=== PATIENT | female | born 1930 | race Caucasian/White ===

== ENCOUNTER → 2017-07-06 | Outpatient (CLI) | payer MEDICARE, OTHER | LOC: COL.RAD 08:35 | DX: M25.531 Pain in right wrist (principal); M25.831 Other specified joint disorders, right wrist | CPT/HCPCS: J3301; Q9967 ==

== ENCOUNTER → 2017-10-28 | Outpatient (CLI) | payer MEDICARE, OTHER | LOC: COL.RAD 11:00 | DX: M25.531 Pain in right wrist (principal) | CPT/HCPCS: J3301; Q9967 ==

== ENCOUNTER → 2018-03-09 | Outpatient (CLI) | payer MEDICARE, OTHER | LOC: COL.RAD 13:00 | DX: M19.031 Primary osteoarthritis, right wrist (principal) | CPT/HCPCS: J3301; Q9967 ==

== ENCOUNTER → 2018-07-20 | Outpatient (CLI) | payer MEDICARE, OTHER | LOC: COL.RAD 09:15 | DX: M25.531 Pain in right wrist (principal) | CPT/HCPCS: J3301; Q9967 ==